=== PATIENT | male | born 1985 | race Two or more races ===

== ENCOUNTER → 2019-06-13 | Outpatient (CLI) | payer BC ==
--- NOTE | 2019-06-13 12:23 | CONS ---
CONSULTATION DATE OF SERVICE: 06/13/2019 This 33-year-old gentleman has been evaluated in sleep center for possible obstructive sleep apnea-hypopnea syndrome. HISTORY OF PRESENT ILLNESS/SLEEP-WAKE EVALUATION: Patient's usual sleep schedule on working days from 11 p.m. to 5:45 a.m. and on weekends from 1 a.m. 7:38 a.m. No problems with falling asleep. No TV in bedroom. He usually sleeps on the side position. According to his , he had loud snoring and witnessed episodes of stopped breathing during the sleep. The patient wakes up from sleep once with nocturia. In the morning he wakes up tired, feeling sleepy during the day. [place] Sleepiness Scale is 10. No history of hypnagogic hallucinations, sleep paralysis or cataplexy. PAST MEDICAL HISTORY: Several episodes of tonsillitis. PAST SURGICAL HISTORY: Adenoidectomy. SOCIAL HISTORY: Negative for smoking. Alcohol consumption occasional. FAMILY HISTORY: Snoring, sleep apnea. His father on treatment with CPAP. REVIEW OF SYSTEMS: Awakenings from sleep, sleepiness during the day. PHYSICAL EXAMINATION: During physical exam, gentleman without distress. VITAL SIGNS: BP 153/92, HR 78, RR 16, height 5 feet 11 inches, weight 276, body mass index 38.4, temperature 98.2, oxygen saturation at room air 98%. HEENT: PERRLA, EOMI. Oropharynx significant hypertrophy of tonsils, size 3-4, significant restriction of nasal breathing, possible nasal septum deviation. NECK: Wide neck is 17 inches in circumference. LUNGS: Clear to percussion and to auscultation. Good air exchange. No wheezing or rhonchi. HEART: S1, S2 regular. No murmurs, gallops, or rubs. ABDOMEN: Slightly obese. EXTREMITIES: No clubbing or cyanosis. GROUND WOOD SUPERVISOR: Awake, alert, and oriented X3. Cranial nerves 2 to 7 intact. There is no fasciculation or atrophy. noted. No focal deficits observed. IMPRESSION: 1. Loud snoring, witnessed episodes of stopped breathing during sleep, awakenings from sleep with nocturia, hypertrophy of tonsils, restriction of nasal breathing, wide neck, sleepiness. [place] Sleepiness Scale is 10. Obstructive sleep apnea- hypopnea syndrome. 2. Obesity, body mass index 38.4. 3. Restriction of nasal breathing; possibly nasal septal deviation. 4. History of tonsillitis, hypertrophy of tonsils. 5. Increasing blood pressure in the office today. PLAN: 1. Home sleep apnea test for evaluation of patient's breathing during sleep. 2. Following plan after reviewing results of home sleep study. 3. Preferable position during sleep on the side. 4. No driving if patient feels any sleepiness. 5. I will see patient for follow up visit to explain results of testing and following plan. Thank you very much for referring this patient for consultation. Sincerely, Swapnil Wu MD, PhD, FAASM Diplomat of [employer] Specialties [place] Board of [employer] Medicine Registered Pharmacy Technician of [facility] [place] MMODL / IJN: [id number] /
== END | disposition home or self-care (01) ==
LOC: SLEEP 10:35
PROVIDERS: ATTEND Internal Medicine
DX: G47.33 Obstructive sleep apnea (adult) (pediatric) (principal); R35.1 Nocturia; J35.1 Hypertrophy of tonsils; E66.9 Obesity, unspecified; I10 Essential (primary) hypertension; Z68.38 Body mass index [BMI] 38.0-38.9, adult; Z87.898 Personal history of other specified conditions; Z87.09 Personal history of other diseases of the respiratory system
CPT/HCPCS: 99211

== ENCOUNTER → 2019-11-06 | Outpatient (CLI) | payer BC ==
--- NOTE | 2019-11-07 11:26 | SFUN ---
SLEEP CENTER FOLLOW UP NOTE DATE OF SERVICE: 11/06/2019 34-year-old gentleman has been followed in Sleep Center for treatment of obstructive sleep apnea-hypopnea syndrome. By results of home sleep apnea test, patient has extremely severe sleep apnea with apnea-hypopnea index 71.5 with oxygen desaturation to 78%, and I discussed results of sleep study with patient in detail. The patient was started on treatment with Auto PAP and today is his first visit after he was started on treatment. He is able to use CPAP equipment every night for the whole night without significant problem. Sleeps significantly better, feels better during the day. [place] Sleepiness Scale is 1. I checked his CPAP unit. Pressure is 10 cm of water. Usage is every night for more than 4 hours with average usage is 6.9 hours per night. Apnea-hypopnea index reading only 1.2. Significant leak from the mask 37 L/minute, but again apnea-hypopnea index totally normal. PHYSICAL EXAM: Patient in no distress. BP 141/96, HR 91, RR 16, weight 274, temp 97.5, oxygen saturation at room air 99%, blood pressure left arm 126/84. HEENT: PERRLA, EOMI, evaluation of oropharynx showed tongue protrudes midline. NECK: Supple, no JVD. Thyroid is not palpable. LUNGS: Clear to percussion and to auscultation. Good air exchange. No wheezing or rhonchi. HEART: S1, S2 regular. No murmurs, gallops, or rubs. ABDOMEN: Obese. EXTREMITIES: No clubbing or cyanosis. SALES SERVICE REP: Awake, alert, and oriented X3. Cranial nerves 2 to 7 intact. There is no fasciculation or atrophy. noted. No focal deficits observed. IMPRESSION: 1. Severe obstructive sleep apnea-hypopnea syndrome. The patient demonstrated 100% compliance with treatment benefitting from treatment. 2. Obesity. 3. Hypertrophy of tonsils. 4. Increasing blood pressure in the office in the past. Slight increasing today in the right arm. PLAN: 1. Patient will continue to use CPAP equipment every night for the whole night. 2. Losing weight. 3. Sleep hygiene with regular time in bed for 7.5 to 8 hours. 4. No driving if feeling sleepiness. 5. Follow-up visit in 6 months or earlier if patient has any problems. Thank you very much for allowing me to participate in management of your patient. Sincerely, Swapnil Wu MD, PhD, FAASM Diplomat of [place] [employer] [place] [employer] Medicine Airplane Rental Clerk of [facility] [place] IRVING / JUDY: [id number] /
== END | disposition home or self-care (01) ==
LOC: SLEEP 16:04
PROVIDERS: ATTEND Internal Medicine
DX: G47.33 Obstructive sleep apnea (adult) (pediatric) (principal); R03.0 Elevated blood-pressure reading, without diagnosis of hypertension; E66.9 Obesity, unspecified; J35.1 Hypertrophy of tonsils; Z99.89 Dependence on other enabling machines and devices

== ENCOUNTER 2020-02-08 15:38 | Emergency (ER) | payer BC ==
[2020-02-08 15:50] VITALS: BP 163/100; PULSE 83; RESP 18; TEMP 98
[2020-02-08 16:39] LABS: Basophils % (A) 0 %; Eosinophils # (A) 0.1 k/uL (0-0.7); Eosinophils % (A) 2 %; HCT 42.9 % (39.0-53.0); HGB 14.7 gm/dL (13.0-17.5); Lymphocytes # (A) 1.9 k/uL (1.0-4.8); Lymphocytes % (A) 36 %; MCH 30.5 pg (25.0-35.0); MCHC 34.3 g/dL (31.0-37.0); MCV 88.8 fL (80.0-100.0); Mean Platelet Volume 7.7; Monocytes # (A) 0.5 k/uL (0-1.0); Monocytes % (A) 9 %; Neutrophils # (A) 2.6 k/uL (1.3-7.7); Neutrophils % (A) 49 %; Platelet Count 228 k/uL (150-450); RBC 4.83 m/uL (4.30-5.90); RDW 12.3 % (11.5-15.5); WBC 5.3 k/uL (3.8-10.6)
[2020-02-08 16:42] LABS: ALT 32 U/L (4-49); AST 39 U/L (17-59); African American GFR (CKD) >90 (>60 ml/min/1.73 sqM); Albumin 4.5 g/dL (3.5-5.0); Alkaline Phosphatase 31 U/L (38-126); Anion Gap 7 mmol/L; Blood Urea Nitrogen 18 mg/dL (9-20); Calcium 9.3 mg/dL (8.4-10.2); Carbon Dioxide 26 mmol/L (22-30); Chloride 105 mmol/L (98-107); Glucose 97 mg/dL (74-99); Non-African American GFR(CKD) >90 (>60 ml/min/1.73 sqM); Sodium 138 mmol/L (137-145); Total Bilirubin 1.5 mg/dL (0.2-1.3); Total Protein 7.3 g/dL (6.3-8.2)
--- NOTE | 2020-02-08 17:15 | US ---
EXAMINATION TYPE: US venous doppler duplex LE RT DATE OF EXAM: 02/08/2020 5:03 PM COMPARISON: NONE CLINICAL HISTORY: phlebitis/DVT?. Red thigh, knee and calf medially with palpable areas seen, no h/o DVT SIDE PERFORMED: Right TECHNIQUE: The lower extremity deep venous system is examined utilizing real time linear array sonog virginie with graded compression, doppler sonography and color-flow sonography. VESSELS IMAGED: External Iliac Vein (EIV) Common Femoral Vein Deep Femoral Vein Greater Saphenous Vein * Femoral Vein Popliteal Vein Small Saphenous Vein * Proximal Calf Veins (* superficial vessels) Right Leg: Negative for DVT but appears to have superficial thrombus within GSV from upper calf exte nding through lower thigh. GSV has internal echoes that are not compressible and have no flow. IMPRESSION: No deep vein thrombosis in the right leg. There is superficial vein thrombosis in the mert g saphenous vein.
--- NOTE | 2020-02-08 17:28 | ED ---
Lower Extremity Injury HPI - General Source: patient Mode of arrival: ambulatory Limitations: no limitations <Marcelina Ivy - Last Filed: 02/08/20 18:23> <Мария Ramos - Last Filed: 02/09/20 13:02> - General Chief Complaint: Extremity Injury, Lower Stated Complaint: R leg pain Time Seen by Provider: 02/08/20 15:51 - History of Present Illness Initial Comments: 34-year-old female presenting today for chief complaint of right posterior calf pain and redness. Patient states for 2 days he has had tenderness and redness of the posterior right calf. Patient denies any fever or chills or malaise he denies any history of DVT pulmonary embolism. He denies any recent surgeries he states he does have varicose veins. Patient denies any chest pain shortness of breath. Patient has no numbness tingling or loss of sensation coolness or pallor of the extremity denies additional complaints upon arrival patient a ppears well and nontoxic in no acute distress he is afebrile nontoxic in appearance (Marcelina Ivy) - Related Data Previous Rx's Medication Instructions Recorded Apixaban [Eliquis Starter Pack 0 mg PO DIRECTED 30 Days #1 pack 02/08/20 (for VTE)] Cephalexin [Keflex] 500 mg PO Q6HR 7 Days #28 cap 02/08/20 Allergies Allergy/AdvReac Type Severity Reaction Status Date / Time bee venom protein (honey bee) Allergy Dyspnea Verified 02/08/20 15:48 Review of Systems ROS Other: All systems not noted in ROS Statement are negative. <Marcelina Ivy - Last Filed: 02/08/20 18:23> ROS Other: All systems not noted in ROS Statement are negative. <Мария Ramos - Last Filed: 02/09/20 13:02> ROS Statement: Those systems with pertinent positive or pertinent negative responses have been documented in the HPI. Past Medical History Past Medical History: No Reported History History of Any Multi-Drug Resistant Organisms: None Reported Past Surgical History: Adenoidectomy Past Psychological History: No Psychological Hx Reported Smoking Status: Never smoker Past Alcohol Use History: Occasional Past Drug Use History: None Reported <Marcelina Ivy - Last Filed: 02/08/20 18:23> General Exam Limitations: no limitations <Marcelina Ivy - Last Filed: 02/08/20 18:23> - General Exam Comments Initial Comments: General: The patient is awake and alert, in no distress Eye: +3 mm pupils are equal, round and reactive to light, extra-ocular movements are intact. No nystagmus. There is normal conjunctiva bilaterally. No signs of icterus. Ears, nose, mouth and throat: There are moist mucous membranes and no oral lesions. Neck: The neck is supple, there is no tenderness or JVD. Cardiovascular: There is a regular rate and rhythm. No murmur, rub or gallop is appreciated. Respiratory: Lungs are clear to auscultation, respirations are non-labored, breath sounds are equal. No wheezes, stridor, rales, or rhonchi. Gastrointestinal: Soft, non-distended, non-tender abdomen without masses or organomegaly noted. There is no rebound or guarding present. Musculoskeletal: Redness of the right medial proximal calf and distal thigh. enlarged varicosity, rope like warm to touch extend from proximal calf to distal thigh. Normal ROM, no tenderness. Strength 5/5. Sensation intact. Radial and DP pulses equal bilaterally 2+. Neurological: A&O x 3. CN II-XII intact grossly, There are no obvious motor or sensory deficits. Coordination appears grossly intact. Speech is normal. Skin: Skin is warm and dry and no rashes or lesions are noted. Psychiatric: Cooperative, appropriate mood & affect, normal judgment. (Marcelina Ivy) Course Vital Signs 02/08/20 02/08/20 15:48 17:49 Temperature 98 F 98 F Pulse Rate 83 83 Respiratory 18 18 Rate Blood Pressure 163/100 163/100 O2 Sat by Pulse 99 99 Oximetry Medical Decision Making - Lab Data Result diagrams: 02/08/20 16:07 02/08/20 16:07 <Marcelina Ivy - Last Filed: 02/08/20 18:23> - Lab Data Result diagrams: 02/08/20 16:07 02/08/20 16:07 <Мария Ramos - Last Filed: 02/09/20 13:02> - Medical Decision Making Very large superficial thrombosis of the right leg patient has a superimposed cellulitis also evident on physical examination. Patient does not appear toxic heart rate within normal limits. He should afebrile. Patient be initiated on Keflex as well as a PICC CBM given the extent of the superficial venous thrombosis U also be instructed to follow-up with vascular surgery. Patient case discussed wtih Dr. Ramos who is agreeable to care plan and discharge. pt denied any dark or bloody stool. educated patient on risk of increased bleeding. (Marcelina Ivy) I was available for consultation in the emergency department. The history and physical exam were done by the midlevel provider. I was consulted for this patients care. I reviewed the case with the midlevel provider and based on their presentation of the patient, I agree with the assessment, medical decision making and plan of care as documented. Patient started on keflex and anticoagulation due to size of superficial thrombophebitis. He has no contraindications to anticoagulation. Chart was dictated using [address] dictation software. Attempts were made to correct any dictation errors however some typographical errors may persist. Patient was seen during a national state of emergency due to the Covid-19 pandemic. (Мария Ramos) - Lab Data Lab Results 02/08/20 02/08/20 Range/Units 16:07 16:07 WBC 5.3 (3.8-10.6) k/uL RBC 4.83 (4.30-5.90) m/uL Hgb 14.7 (13.0-17.5) gm/dL Hct 42.9 (39.0-53.0) % MCV 88.8 (80.0-100.0) fL MCH 30.5 (25.0-35.0) pg MCHC 34.3 (31.0-37.0) g/dL RDW 12.3 (11.5-15.5) % Plt Count 228 (150-450) k/uL Neutrophils % 49 % Lymphocytes % 36 % Monocytes % 9 % Eosinophils % 2 % Basophils % 0 % Neutrophils # 2.6 (1.3-7.7) k/uL Lymphocytes # 1.9 (1.0-4.8) k/uL Monocytes # 0.5 (0-1.0) k/uL Eosinophils # 0.1 (0-0.7) k/uL Basophils # 0.0 (0-0.2) k/uL Sodium 138 (137-145) mmol/L Potassium 4.0 (3.5-5.1) mmol/L Chloride 105 (98-107) mmol/L Carbon Dioxide 26 (22-30) mmol/L Anion Gap 7 mmol/L BUN 18 (9-20) mg/dL Creatinine 0.73 (0.66-1.25) mg/dL Est GFR (CKD-EPI)AfAm >90 (>60 ml/min/1.73 sqM) Est GFR (CKD-EPI)NonAf >90 (>60 ml/min/1.73 sqM) Glucose 97 (74-99) mg/dL Calcium 9.3 (8.4-10.2) mg/dL Total Bilirubin 1.5 H (0.2-1.3) mg/dL AST 39 (17-59) U/L ALT 32 (4-49) U/L Alkaline Phosphatase 31 L (38-126) U/L Total Protein 7.3 (6.3-8.2) g/dL Albumin 4.5 (3.5-5.0) g/dL Disposition Is patient prescribed a controlled substance at d/c from ED?: No Time of Disposition: 17:27 <Marcelina Ivy - Last Filed: 02/08/20 18:23> <Мария Ramos - Last Filed: 02/09/20 13:02> Clinical Impression: Superficial thrombophlebitis, Right leg pain, Cellulitis of right leg Disposition: HOME SELF-CARE Condition: Good Instructions (If sedation given, give patient instructions): Apixaban (By mouth), Cellulitis (ED), Superficial Thrombophlebitis (ED) Additional Instructions: Please use medication as discussed. Please follow-up with family doctor in the next 2 days, vascular surgery in next week. Please return to emergency room if the symptoms increase or worsen or for any other concerns. Prescriptions: Apixaban [Eliquis Starter Pack (for VTE)] 0 mg PO DIRECTED 30 Days #1 pack Cephalexin [Keflex] 500 mg PO Q6HR 7 Days #28 cap Referrals: Ernesto Flores MD [Primary Care Provider] - 1-2 days Augusto Nagel DO [Doctor of Osteopathic Medicine] - 1-2 days
[2020-02-08] MEDS ORDERED: APIXABAN 5 MG TAB PO STA (17:40)
[2020-02-08] MEDS ORDERED: CEPHALEXIN 500MG STARTER PACK 4 CAP BTL PO STA (17:40)
== END 2020-02-08 17:50 | disposition home or self-care (01) ==
LOC: EC 15:38
DX: I80.01 Phlebitis and thrombophlebitis of superficial vessels of right lower extremity (principal); L03.115 Cellulitis of right lower limb; Z91.030 Bee allergy status
CPT/HCPCS: 36415; 80053; 85025; 99284

== ENCOUNTER → 2020-04-16 | Outpatient (CLI) | payer BC ==
--- NOTE | 2020-04-17 04:19 | SFUN ---
SLEEP CENTER FOLLOW UP NOTE DATE OF SERVICE: 04/16/2020 This 34-year-old gentleman has been followed in the Sleep Center for treatment of obstructive sleep apnea-hypopnea syndrome. Patient continued to use his CPAP equipment every night for the whole night. Now, he feels better for using machine if he is not at home. No snoring with the machine. [place] Sleepiness Scale is only 1. I checked patient's CPAP unit. CPAP pressure is 10 cm of water, usage 30 out of 30 nights for more than 4 hours. Average usage is 6.9 hours per night. Apnea-hypopnea index is normal only 1.0, but significant leak is present 88 L/minute. MEDICATIONS: Presently, the patient does not take any medications. PHYSICAL EXAMINATION: GENERAL: Patient in no distress. VITAL SIGNS: BP 146/83, HR 82, RR 15, height 5 feet 11 inches, weight 261, BMI 36.4, temperature 98.0, oxygen saturation at room air 98% HEENT: PERRLA, EOMI, evaluation of oropharynx showed tongue protrudes midline. NECK: Supple, no JVD. Thyroid is not palpable. LUNGS: Clear to percussion and to auscultation. Good air exchange. No wheezing or rhonchi. HEART: S1, S2 regular. No murmurs, gallops, or rubs. ABDOMEN: Soft and nontender. Bowel sounds are present. No organomegaly appreciated. EXTREMITIES: No clubbing or cyanosis. STOCKROOM HELPER: Awake, alert, and oriented X3. Cranial nerves 2 to 7 intact. There is no fasciculation or atrophy. noted. No focal deficits observed. IMPRESSION: 1. Obstructive sleep apnea-hypopnea syndrome. Patient demonstrated 100% compliance with treatment, benefitting from treatment. 2. Significant leak from the full-face mask. The patient is using Simplus mask. He felt that the leak was more when he had a hodge. 3. Obesity, body mass index 36.4. 4. Slight increase in blood pressure in the office. 5. Hypertrophy of tonsils. PLAN: 1. Patient will continue to use PAP equipment every night for the whole night. 2. Sleep hygiene with regular time in bed for at least 7-1/2 to 8 hours. 3. Precautions related to driving. No driving if feeling sleepiness. 4. I will maintain all necessary prescription for PAP supplies including mask, tube, filters. 5. Watching weight. 6. No driving if feeling sleepiness. 7. Follow-up visit in 6 months or earlier if patient has any problems. 8. I discussed with the patient possibility to consider using different size of the nasal mask. 9. Prescription for the chin strap possibly leak related to opening mouth and movements of the full-face mask. Thank you very much for allowing me to participate in management of your patient. Sincerely, Swapnil Wu MD, PhD, FAASM Diplomat of [place] [employer] Specialties [employer] Board of Internal Medicine Cpc Coder of [facility] [place] MMODL / IJN: [id number] /
== END | disposition home or self-care (01) ==
LOC: SLEEP 16:24
PROVIDERS: ATTEND Internal Medicine
DX: G47.33 Obstructive sleep apnea (adult) (pediatric) (principal); E66.9 Obesity, unspecified; J35.1 Hypertrophy of tonsils; Z68.36 Body mass index [BMI] 36.0-36.9, adult; Z99.89 Dependence on other enabling machines and devices

== ENCOUNTER → 2021-08-26 | Outpatient (CLI) | payer OTHER ==
--- NOTE | 2021-08-26 13:21 | SFUN ---
SLEEP CENTER FOLLOW UP NOTE DATE OF SERVICE: 08/26/2021 This 35-year-old gentleman has been followed in Sleep Center for treatment of obstructive sleep apnea-hypopnea syndrome. The last time I saw this patient was about 2-1/2 years ago. The patient continues to use his CPAP equipment, but his CPAP unit is broken at present. Before it was broken, he used the equipment every night for the whole night without any problems. During his previous visit, apnea-hypopnea index was totally normal at 1, and pressure in the machine was 10 cm of water. The patient demonstrated 100% compliance with treatment. Since his previous visit, the patient's weight has increased from 261 pounds up to 295 pounds. [place] Sleepiness Scale is significantly increased to 15 today. MEDICATIONS: None. PHYSICAL EXAMINATION: GENERAL: Pleasant patient in no distress. VITAL SIGNS: BP 142/90, HR 80, RR 16, weight 295.6, temperature 97.3, oxygen saturation at room air 97%. HEENT: PERRLA, EOMI, evaluation of oropharynx showed tongue protrudes midline. Hypertrophy of tonsils. NECK: Supple, no JVD. Thyroid is not palpable. LUNGS: Clear to percussion and to auscultation. Good air exchange. No wheezing or rhonchi. HEART: S1, S2 regular. No murmurs, gallops, or rubs. ABDOMEN: Soft and nontender. Bowel sounds are present. No organomegaly appreciated. EXTREMITIES: No clubbing or cyanosis. CHIEF LIBRARIAN CIRCULATION DEPARTMENT: Awake, alert, and oriented X3. Cranial nerves 2 to 7 intact. There is no fasciculation or atrophy. noted. No focal deficits observed. IMPRESSION: 1. Obstructive sleep apnea-hypopnea syndrome. Patient's CPAP unit is broken and needs to be replaced immediately. 2. Obesity; the patient's weight increased by 34 pounds since his previous visit. 3. Increased blood pressure in the office. 4. Hypertrophy of tonsils. PLAN: 1. Prescription to replace CPAP unit to AutoPAP unit because the patient's weight has significantly increased. Range of the pressure 7 to 14. 2. I will see the patient in 30 to 90 days after he receives his new CPAP unit to evaluate his compliance with treatment and clinical response on treatment. 3. Losing weight. 4. No driving if feeling any sleepiness. 5. Sleep hygiene with regular time in bed for 7-1/2 to 8 hours. 6. Monitoring of blood pressure. 7. Low-sodium diet. Thank you very much for allowing me to participate in the management of your patient. Sincerely, Swapnil Wu MD, PhD, FAASM Diplomat of [place] [employer] Specialties Sleep Medicine Board of [place] Board of Internal Medicine Jewellery Designer of [facility] [place] MMSANDRAL / JUANN: [id number] /
== END ==
LOC: SLEEP 11:31
PROVIDERS: ATTEND Internal Medicine
DX: G47.33 Obstructive sleep apnea (adult) (pediatric) (principal); Z99.89 Dependence on other enabling machines and devices; E66.9 Obesity, unspecified; I10 Essential (primary) hypertension; J35.1 Hypertrophy of tonsils; Z91.030 Bee allergy status

== ENCOUNTER → 2022-01-20 | Outpatient (CLI) | payer OTHER ==
--- NOTE | 2022-01-20 15:09 | P.PN ---
Subjective DATE: [] FOLLOW UP VISIT. Patient with obstructive sleep apnea hypopnea syndrome return to sleep center for follow-up visit. Recently patient had sleep study which documented obstructive sleep apnea hypopnea syndrome. Patient was initiated on PAP therapy and today is first visit after treatment was started. Patient was able to use PAP equipment every night for the whole night. The patient does not have significant problems with the mask, PAP pressure and humidification. [place] sleepiness scale is 2. I checked information from PAP unit. PAP unit pressure 7-14, average 9.2 cm H2O. Usage is 97 % for more then 4 hours, average 7.5 hours per night. Leak is 13.4 l/m, which is in acceptable range. Apnea Hypopnea Index is 0.8, which is normal. MEDICATIONS: None During physical exam: GENERAL: A pleasant patient without any distress. VITAL SIGNS: BP 147/87, HR 74, RR 16 , weight 282.8, temperature 97.1, oxygen saturation at room air 97 . HEENT: PERRLA, EOMI.low position of soft palate, hypertrophy of tonsils. NECK: Supple. No JVD. LUNGS: Clear to percussion and to auscultation. Good air exchange. No wheezing or rhonchi. HEART: S1, S2 regular. ABDOMEN: Soft and nontender. Slightly obese EXTREMITIES: No clubbing or cyanosis. ASSISTANT FOOTBALL COACH: Awake, alert, and oriented x3. No focal deficit. Impressions: 1. Obstructive sleep apnea-hypopnea syndrome. Patient demonstrated great compliance with treatment, benefiting from treatment. 2. Mild obesity. 3. Hypertrophy of tonsils. 4. Increasing blood pressure in the office. Plan: 1. Continue using PAP equipment every night for the whole night. 2. To change air filter at least 1-2 times per month. 3. PAP unit should stay lower then position of the head. 4. Advised patient to remove all remaining water from humidifier canister daily and make it dry after each usage. Refill canister with fresh distilled water before each usage. 5. Sleep hygiene with regular time in bed for at least 8 hours. 6. Precautions related to driving. No driving if feel any sleepiness. 7. I will maintain prescription for PAP supplies including mask, tube, filters. 8. Follow up visit in 6 months or earlier if patient has any problems. 9. Watching weight. 10. Low sodium diet Thank you very much for allowing me to participate in the management of your patient. Swapnil Wu MD, PhD, FAASM. Diplomat of [place] [employer], Sleep Medicine Board by [place] Board of Internal Medicine Wood Room Hand of [facility] [place]
== END ==
LOC: SLEEP 14:34
PROVIDERS: ATTEND Internal Medicine
DX: G47.33 Obstructive sleep apnea (adult) (pediatric) (principal); E66.9 Obesity, unspecified; J35.1 Hypertrophy of tonsils; R03.0 Elevated blood-pressure reading, without diagnosis of hypertension; Z99.89 Dependence on other enabling machines and devices; Z91.030 Bee allergy status

== ENCOUNTER → 2022-08-11 | Outpatient (CLI) | payer BC ==
--- NOTE | 2022-08-11 16:41 | P.PN ---
Subjective DATE: 08/11/2022 FOLLOW UP VISIT. Patient with obstructive sleep apnea hypopnea syndrome return to sleep center for follow-up visit. Information from previous visit have been reviewed. Patient is using PAP equipment every night for the whole night, getting PAP supplies in time. The patient does not have significant problems with the mask, PAP unit and humidification. [place] sleepiness scale is 1, which is perfect. I checked information from PAP unit. PAP unit pressure 7-14, average 10 cm H2O. Usage is 100 % for more then 4 hours, average 7.2 hours per night. Leak is 10 l/m, which is in acceptable range. Apnea Hypopnea Index is 0.5, which is normal. MEDICATIONS: None During physical exam: GENERAL: A pleasant patient without any distress. VITAL SIGNS: BP 139/92, HR 84, RR 16 , weight to 84, body mass index 39.6, temperature 98.1, oxygen saturation at room air 98 % . HEENT: PERRLA, EOMI.low position of soft palate, hypertrophy of tonsils . NECK: Supple. No JVD. LUNGS: Clear to percussion and to auscultation. Good air exchange. No wheezing or rhonchi. HEART: S1, S2 regular. ABDOMEN: Soft and nontender. Slightly obese EXTREMITIES: No clubbing or cyanosis. TRAFFIC MANAGER: Awake, alert, and oriented x3. No focal deficit. Impressions: 1. Obstructive sleep apnea-hypopnea syndrome. Patient demonstrated great compliance with treatment, benefiting from treatment. 2. Obesity body mass index 39.6. 3. Hypertrophy of tonsils. 4. Slight increasing blood pressure in the office during this visit and during previous visit. Plan: 1. Continue using PAP equipment every night for the whole night. 2. To change air filter at least 1-2 times per month. 3. PAP unit should stay lower then position of the head. 4. Advised patient to remove all remaining water from humidifier canister daily and make it dry after each usage. Refill canister with fresh distilled water before each usage. 5. Sleep hygiene with regular time in bed for at least 8 hours. 6. Precautions related to driving. No driving if feel any sleepiness. 7. I will maintain prescription for PAP supplies including mask, tube, filters. 8. .Watching and losing weight. 9. Low sodium diet. 10.Follow up visit in 6 months or earlier if patient has any problems Thank you very much for allowing me to participate in the management of your patient. Swapnil Wu MD, PhD, FAASM. Diplomat of [employer], Sleep Medicine Board by [employer] Home Visits Nurse of [facility] [place]
== END ==
LOC: SLEEP 16:16
PROVIDERS: ATTEND Internal Medicine
DX: G47.33 Obstructive sleep apnea (adult) (pediatric) (principal); J35.1 Hypertrophy of tonsils; E66.9 Obesity, unspecified; Z68.36 Body mass index [BMI] 36.0-36.9, adult; Z99.89 Dependence on other enabling machines and devices; Z91.02 Food additives allergy status; R03.0 Elevated blood-pressure reading, without diagnosis of hypertension
CPT/HCPCS: 99212

== ENCOUNTER → 2023-03-02 | Outpatient (CLI) | payer BC ==
--- NOTE | 2023-03-02 16:48 | P.PN ---
Subjective DATE: 03/02/2023 FOLLOW UP VISIT. Patient with obstructive sleep apnea hypopnea syndrome return to sleep center for follow-up visit. Information from previous visit have been reviewed. Patient is using PAP equipment every night for the whole night, getting PAP supplies in time. The patient does not have significant problems with the mask, PAP unit and humidification. [place] sleepiness scale is 1, which is perfect. I checked information from PAP unit. PAP unit pressure 7-14, average 9.1 cm H2O. Usage is 100 % for more then 4 hours, average 6.5 hours per night. Leak is 24.1 l/m, which is in acceptable range. Apnea Hypopnea Index is 0.9, which is normal. MEDICATIONS: None During physical exam: GENERAL: A pleasant patient without any distress. VITAL SIGNS: BP 151/97, HR 78, RR 18, weight 302.4, temperature 98.0, oxygen saturation at room air 97 % . HEENT: PERRLA, EOMI.low position of soft palate, [place] 3 . NECK: Supple. No JVD. LUNGS: Clear to percussion and to auscultation. Good air exchange. No wheezing or rhonchi. HEART: S1, S2 regular. ABDOMEN: Soft and nontender.[] EXTREMITIES: No clubbing or cyanosis. THREAD GRINDER: Awake, alert, and oriented x3. No focal deficit. Impressions: 1. Obstructive sleep apnea-hypopnea syndrome. Patient demonstrated great compliance with treatment, benefiting from treatment. 2. Hypertension in the office. 3. Obesity, patient increased his weight on 18 pounds comparing to the previous visit. 4. Hypertrophy of tonsils. Plan: 1. Continue using PAP equipment every night for the whole night. 2. To change air filter at least 1-2 times per month. 3. PAP unit should stay lower then position of the head. 4. Advised patient to remove all remaining water from humidifier canister daily and make it dry after each usage. Refill canister with fresh distilled water before each usage. 5. Sleep hygiene with regular time in bed for at least 8 hours. 6. Precautions related to driving. No driving if feel any sleepiness. 7. I will maintain prescription for PAP supplies including mask, tube, filters. 8. Follow up visit in 6 months or earlier if patient has any problems. 9. Watching weight. 10. Monitoring blood pressure 11. Low sodium diet. Thank you very much for allowing me to participate in the management of your patient. Swapnil Wu MD, PhD, FAASM. Diplomat of [employer], Sleep Medicine Board by [employer] Coach of [facility] [place]
== END ==
LOC: 3 N SLEEP 16:08
PROVIDERS: ATTEND Internal Medicine
DX: G47.33 Obstructive sleep apnea (adult) (pediatric) (principal); I10 Essential (primary) hypertension; E66.9 Obesity, unspecified; J35.1 Hypertrophy of tonsils; Z99.89 Dependence on other enabling machines and devices; Z91.030 Bee allergy status
CPT/HCPCS: 99212